=== PATIENT | male | born 1970 | race Caucasian/White ===

== ENCOUNTER 2024-02-12 09:36 | Observation (INO) | payer OTHER ==
--- NOTE | 2024-02-12 09:54 | ED ---
General Adult HPI - General Chief complaint: Alcohol Stated complaint: ETOH Time Seen by Provider: 02/12/24 09:41 Source: patient, EMS, RN notes reviewed Mode of arrival: EMS Limitations: no limitations - History of Present Illness Initial comments: Patient is a 53-year-old male present to the emergency department from [facility] for alcohol intoxication. Patient states he went there to try to get off alcohol however his level was too high. Patient mitts to drinking today. Patient states sometimes he can drink up to 2 of 1/5 of alcohol. Patient denies any physical complaints however does state that his heartbeat may be high - Related Data Home Medications Medication Instructions Recorded Confirmed Atorvastatin [Lipitor] 20 mg PO HS 02/12/24 02/12/24 Baclofen 10 mg PO BID PRN 02/12/24 02/12/24 Ergocalciferol [Vitamin D2 (1250 1,250 mcg PO SA 02/12/24 02/12/24 Mcg = 12133 Iu)] Folic Acid 1 mg PO DAILY 02/12/24 02/12/24 Mirtazapine [Remeron] 30 mg PO HS 02/12/24 02/12/24 Sildenafil Citrate 50 mg PO Q4H PRN MDD 100mg 02/12/24 02/12/24 busPIRone HCL 15 mg PO BID 02/12/24 02/12/24 fluvoxaMINE MALEATE [Luvox CR] 150 mg PO DAILY 02/12/24 02/12/24 metFORMIN HCL [Glucophage] 500 mg PO BID 02/12/24 02/12/24 Allergies Allergy/AdvReac Type Severity Reaction Status Date / Time No Known Allergies Allergy Verified 02/12/24 09:46 Review of Systems ROS Statement: Those systems with pertinent positive or pertinent negative responses have been documented in the HPI. ROS Other: All systems not noted in ROS Statement are negative. Constitutional: Denies: fever Eyes: Denies: eye pain ENT: Denies: ear pain Cardiovascular: Denies: chest pain Gastrointestinal: Denies: abdominal pain, vomiting Past Medical History Past Medical History: No Reported History History of Any Multi-Drug Resistant Organisms: None Reported Past Surgical History: No Surgical Hx Reported Past Alcohol Use History: Abuse Past Drug Use History: None Reported General Exam Limitations: no limitations General appearance: alert, in no apparent distress Head exam: Present: normocephalic Eye exam: Present: normal appearance, PERRL, EOMI, nystagmus Neck exam: Present: normal inspection Respiratory exam: Present: normal lung sounds bilaterally Cardiovascular Exam: Present: tachycardia, normal heart sounds GI/Abdominal exam: Present: soft. Absent: tenderness Extremities exam: Present: normal inspection Neurological exam: Present: alert Psychiatric exam: Present: normal affect, normal mood Skin exam: Present: normal color Course Vital Signs 02/12/24 09:40 Temperature 98.3 F Pulse Rate 124 H Respiratory 18 Rate Blood Pressure 164/82 O2 Sat by Pulse 94 L Oximetry Medical Decision Making - Medical Decision Making Was pt. sent in by a medical professional or institution (, PA, FIELD SUPERINTENDENT, urgent care, hospital, or senior care...) When possible be specific @ -Patient was sent from [facility] Did you speak to anyone other than the patient for history (EMS, parent, family, police, friend...)? What history was obtained from this source @ -No Did you review nursing and triage notes (agree or disagree)? Why? @ -I reviewed and agree with nursing and triage notes Were old charts reviewed (outside hosp., previous admission, EMS record, old EKG, old radiological studies, urgent care reports/EKG's, senior care records)? Report findings @ -No old charts were reviewed Differential Diagnosis (chest pain, altered mental status, abdominal pain women, abdominal pain men, vaginal bleeding, weakness, fever, dyspnea, syncope, headache, dizziness, GI bleed, back pain, seizure, CVA, palpatations, mental health, musculoskeletal)? @ -Differential Altered Mental Status: Hypoglycemia, DKA, hypercapnia, ETOH, overdose, CO poisoning, trauma, myxedema coma, HTN encephalopathy, infection, encephalitis, psychosis, intercranial hemorrhage, hepatic encephalopathy, meningitis, CVA, this is not meant to be an all-inclusive list EKG interpreted by me (3pts min.). @ -As above X-rays interpreted by me (1pt min.). @ -None done CT interpreted by me (1pt min.). @ -None done U/S interpreted by me (1pt. min.). @ -None done What testing was considered but not performed or refused? (CT, X-rays, U/S, labs)? Why? @ -None What meds were considered but not given or refused? Why? @ -None Did you discuss the management of the patient with other professionals (professionals i.e. , PA, FIELD SUPERINTENDENT, lab, RT, psych nurse, social media campaign manager, water regulator and valve repairer, teacher, tax revenue officer, nurse outreach case manager)? Give summary @ -Case was discussed with Dr. Barry who will admit covering Dr. leon Was smoking cessation discussed for >3mins.? @ -No Was critical care preformed (if so, how long)? @ -No Were there social determinants of health that impacted care today? How? (Homelessness, low income, unemployed, alcoholism, drug addiction, transportation, low edu. Level, literacy, decrease access to med. care, correction, rehab)? @ -No Was there de-escalation of care discussed even if they declined (Discuss DNR or withdrawal of care, Hospice)? DNR status @ -No What co-morbidities impacted this encounter? (DM, HTN, Smoking, COPD, CAD, Cancer, CVA, ARF, Chemo, Hep., AIDS, mental health diagnosis, sleep apnea, morbid obesity)? @ -None Was patient admitted / discharged? Hospital course, mention meds given and route, prescriptions, significant lab abnormalities, going to OR and other pertinent info. @ -Patient presents from rehab with alcohol level of almost 500. Patient will be admitted. Admission orders written. Undiagnosed new problem with uncertain prognosis? @ -No Drug Therapy requiring intensive monitoring for toxicity (Heparin, Nitro, Insulin, Cardizem)? @ -No Were any procedures done? @ -No Diagnosis/symptom? @ -Alcohol intoxication Acute, or Chronic, or Acute on Chronic? @ -Acute Uncomplicated (without systemic symptoms) or Complicated (systemic symptoms)? @ -Default Side effects of treatment? @ -No Exacerbation, Progression, or Severe Exacerbation? @ -No Poses a threat to life or bodily function? How? (Chest pain, USA, GA, pneumonia, PE, COPD, DKA, ARF, appy, cholecystitis, CVA, Diverticulitis, Homicidal, Suicidal, threat to staff... and all critical care pts) @ -No - Lab Data Result diagrams: 02/12/24 10:48 02/12/24 10:48 Lab Results 02/12/24 02/12/24 Range/Units 10:48 10:48 WBC 3.7 L (3.8-10.6) k/uL RBC 3.86 L (4.30-5.90) m/uL Hgb 11.7 L (13.0-17.5) gm/dL Hct 36.5 L (39.0-53.0) % MCV 94.7 (80.0-100.0) fL MCH 30.2 (25.0-35.0) pg MCHC 31.9 (31.0-37.0) g/dL RDW 14.2 (11.5-15.5) % Plt Count 107 L (150-450) k/uL MPV 8.4 Neutrophils % 62 % Lymphocytes % 26 % Monocytes % 6 % Eosinophils % 2 % Basophils % 1 % Neutrophils # 2.3 (1.3-7.7) k/uL Lymphocytes # 1.0 (1.0-4.8) k/uL Monocytes # 0.2 (0-1.0) k/uL Eosinophils # 0.1 (0-0.7) k/uL Basophils # 0.0 (0-0.2) k/uL Sodium 141 (137-145) mmol/L Potassium 3.9 (3.5-5.1) mmol/L Chloride 99 (98-107) mmol/L Carbon Dioxide 20 L (22-30) mmol/L Anion Gap 22 mmol/L BUN 17 (9-20) mg/dL Creatinine 0.73 (0.66-1.25) mg/dL Est GFR (CKD-EPI)AfAm >90 (>60 ml/min/1.73 sqM) Est GFR (CKD-EPI)NonAf >90 (>60 ml/min/1.73 sqM) Glucose 181 H (74-99) mg/dL Calcium 8.7 (8.4-10.2) mg/dL Magnesium 1.8 (1.6-2.3) mg/dL Total Bilirubin 0.8 (0.2-1.3) mg/dL AST 107 H (17-59) U/L ALT 72 H (4-49) U/L Alkaline Phosphatase 99 (38-126) U/L Total Protein 7.3 (6.3-8.2) g/dL Albumin 4.7 (3.5-5.0) g/dL Serum Alcohol 499 H* mg/dL Disposition Clinical Impression: Alcoholic intoxication Disposition: ADMITTED IP TO THIS HOSP Is patient prescribed a controlled substance at d/c from ED?: No Referrals: None,Stated [REFERRING] - 1-2 days Time of Disposition: 12:11
[2024-02-12] MEDS: SODIUM CHLORIDE 0.9% 1,000 ML IV STA (10:04)
[2024-02-12] MEDS: THIAMINE 100 MG/ML 2 ML VIAL IM STA (10:05)
[2024-02-12 11:21] LABS: Basophils % (A) 1 %; Eosinophils # (A) 0.1 k/uL (0-0.7); Eosinophils % (A) 2 %; HCT 36.5 % (39.0-53.0); HGB 11.7 gm/dL (13.0-17.5); Lymphocytes % (A) 26 %; MCH 30.2 pg (25.0-35.0); MCHC 31.9 g/dL (31.0-37.0); MCV 94.7 fL (80.0-100.0); Mean Platelet Volume 8.4; Monocytes # (A) 0.2 k/uL (0-1.0); Monocytes % (A) 6 %; Neutrophils # (A) 2.3 k/uL (1.3-7.7); Neutrophils % (A) 62 %; Platelet Count 107 k/uL (150-450); RBC 3.86 m/uL (4.30-5.90); RDW 14.2 % (11.5-15.5); WBC 3.7 k/uL (3.8-10.6)
[2024-02-12 11:30] LABS: ALT 72 U/L (4-49); AST 107 U/L (17-59); African American GFR (CKD) >90 (>60 ml/min/1.73 sqM); Albumin 4.7 g/dL (3.5-5.0); Alkaline Phosphatase 99 U/L (38-126); Anion Gap 22 mmol/L; Blood Urea Nitrogen 17 mg/dL (9-20); Calcium 8.7 mg/dL (8.4-10.2); Carbon Dioxide 20 mmol/L (22-30); Chloride 99 mmol/L (98-107); Glucose 181 mg/dL (74-99); Magnesium 1.8 mg/dL (1.6-2.3); Non-African American GFR(CKD) >90 (>60 ml/min/1.73 sqM); Potassium 3.9 mmol/L (3.5-5.1); Sodium 141 mmol/L (137-145); Total Bilirubin 0.8 mg/dL (0.2-1.3); Total Protein 7.3 g/dL (6.3-8.2)
[2024-02-12 11:48] LABS: Alcohol 499 mg/dL
[2024-02-12] MEDS ORDERED: BACLOFEN 10 MG TAB PO PRN (12:09)
[2024-02-12] MEDS ORDERED: NALOXONE 0.4 MG/ML 1 ML VIAL IV PRN (12:11)
[2024-02-12] MEDS ORDERED: LORazepam 0.5 MG TAB PO PRN (12:14)
[2024-02-12] MEDS ORDERED: LORazepam 1 MG TAB PO PRN (12:14)
[2024-02-12] MEDS: SODIUM CHLORIDE 0.9% 1,000 ML IV SCH (12:28)
--- NOTE | 2024-02-12 14:18 | P.HPIM ---
History of Present Illness H&P Date: 02/12/24 History of Presenting Illness: Patient is a 53-year-old male with a past medical history of daily alcohol abuse reporting drinking 2 fifths of liquor daily, hypertension, type II [id number] diabetes mellitus, and anxiety. He presented to the emergency department from [place] secondary to alcohol intoxication. Patient reports he is trying to stop drinking which is why he went to [place], but reports was still intoxicated so they sent him to the hospital for medical detox. Patient denies any complaints at this time with the exception of mild nausea and anxiety. He denies headache, lightheadedness, dizziness, chest pain, palpitations, shortness of breath, cough or congestion, or experiencing any numbness/tingling/weakness/swelling in his extremities. Underwent evaluation in the emergency department. Vital signs upon arrival show blood pressure 164/82, heart rate 124, respiratory rate 18, temp 98.3 F, and SpO2 of 94% on room air. Labs completed and reviewed. CBC showing pancytopenia with WBC count of 3.7, hemoglobin 11.7, and platelet count of 107. BMP showing hypocarbia with bicarb of 20 and elevated anion gap of 22. Blood glucose 181. Magnesium 1.8. Liver profile showing elevated AST of 107 and ALT of 72. Blood alcohol level was 499. Patient admitted under our services for medical detox. Review of systems: Pertinent positives and negatives as discussed in HPI, a complete review of systems was performed and all other systems are negative. Physical exam: Vital signs reviewed and stable. General: Nontoxic, no distress and appears stated age. Derm: Skin warm and dry, normal coloration for ethnicity. Head: Atraumatic, normocephalic and symmetric. Eyes: EOMs intact, no lid lag, and anicteric sclera Mouth: no lip lesions, mucus membranes moist Cardiovascular: regular rate and rhythm with normal S1S2, no murmur, positive posterior tibial pulses bilaterally, and cap refill < 2 seconds. Lungs: Respirations even, regular, and unlabored on room air. Lungs CTA bilaterally, no rhonchi, no rales, no wheezing, and no accessory muscle usage. Abdominal: soft, nontender to palpation, no guarding, no appreciable or ganomegaly Ext: ROM intact. No gross muscle atrophy, no edema, no contractures Neuro: Speech clear, face symmetrical and CN II-XII grossly intact with no noted focal neuro deficits Psych: Alert and oriented to person, place, time, and situation. Appropriate and pleasant affect. Assessment and Plan of Care: Alcohol intoxication in active alcoholic -Order placed for monitoring of CIWA scores and patient to be medicated with Ativan 0.5 mg every 4 hours as needed for CIWA score of 4-5, Ativan 1 mg every 4 hours for CIWA score of 6-7, Ativan 2 mg every 3 hours CIWA score of 8-9, and Ativan 2 mg every 2 hours forr CIWA score of 10 or greater. -Continuous IV hydration. -Thiamine 100 mg daily -Multivitamin daily -Folate 1 mg daily -Seizure, fall, aspiration, and elopement precautions in place. -Continued close monitoring of electrolytes and replace as needed. -Telemetry monitoring. Diabetes mellitus with hyperglycemia Hold metformin and patient placed on glycemic protocol with NovoLog sliding scale. Hyperlipidemia Continue daily medication regimen with atorvastatin 20 mg nightly. Anxiety Continue daily medication regimen with BuSpar 15 mg twice daily, Luvox 150 mg daily, and Remeron 30 mg nightly. Data and imaging reviewed: As stated above in HPI CODE STATUS: Full code DVT prophylaxis: Lovenox Anticipated discharge date: Pending clinical course Anticipated discharge place: Return to [facility] Patient was seen independently by Nurse Practitioner. This document was prepared using [employer] dictation software. Please allow for errors in equipment planner while rare they do occur. I reviewed the documentation as provided by the FREDA above, who is the original author of this note. I agree with the documented assessment and plan, with the following changes: none Past Medical History Past Medical History: No Reported History History of Any Multi-Drug Resistant Organisms: None Reported Past Surgical History: No Surgical Hx Reported Past Alcohol Use History: Abuse Past Drug Use History: None Reported Medications and Allergies Home Medications Medication Instructions Recorded Confirmed Type Atorvastatin [Lipitor] 20 mg PO HS 02/12/24 02/12/24 History Baclofen 10 mg PO BID PRN 02/12/24 02/12/24 History Ergocalciferol [Vitamin D2 (1250 1,250 mcg PO SA 02/12/24 02/12/24 History Mcg = 42261 Iu)] Folic Acid 1 mg PO DAILY 02/12/24 02/12/24 History Mirtazapine [Remeron] 30 mg PO HS 02/12/24 02/12/24 History Sildenafil Citrate 50 mg PO Q4H PRN MDD 100mg 02/12/24 02/12/24 History busPIRone HCL 15 mg PO BID 02/12/24 02/12/24 History fluvoxaMINE MALEATE [Luvox CR] 150 mg PO DAILY 02/12/24 02/12/24 History metFORMIN HCL [Glucophage] 500 mg PO BID 02/12/24 02/12/24 History Allergies Allergy/AdvReac Type Severity Reaction Status Date / Time No Known Allergies Allergy Verified 02/12/24 09:46 Physical Exam Vitals: Vital Signs Temp Pulse Resp BP Pulse Ox 02/12/24 14:15 98.1 F 105 H 18 122/76 98 02/12/24 09:40 98.3 F 124 H 18 164/82 94 L Intake and Output 02/11/24 02/12/24 02/12/24 22:59 06:59 14:59 Other: Weight 79.379 kg Results CBC & Chem 7: 02/12/24 10:48 02/12/24 10:48 Labs: Abnormal Lab Results - Last 24 Hours (Table) 02/12/24 02/12/24 Range/Units 10:48 10:48 WBC 3.7 L (3.8-10.6) k/uL RBC 3.86 L (4.30-5.90) m/uL Hgb 11.7 L (13.0-17.5) gm/dL Hct 36.5 L (39.0-53.0) % Plt Count 107 L (150-450) k/uL Carbon Dioxide 20 L (22-30) mmol/L Glucose 181 H (74-99) mg/dL AST 107 H (17-59) U/L ALT 72 H (4-49) U/L Serum Alcohol 499 H* mg/dL
[2024-02-12] MEDS ORDERED: DEXTROSE 50% SYRINGE 50 ML IVP PRN ×2 (14:30)
[2024-02-12] MEDS: LORazepam 1 MG TAB PO PRN ×2 (15:07→17:42)
[2024-02-12] MEDS ORDERED: metFORMIN 500 MG TAB PO SCH (17:30)
[2024-02-12] MEDS: PROCHLORPERAZINE INJ 10 MG/2 ML VIAL IVP PRN (17:36)
[2024-02-12 18:12] LABS: Glucose,Whole Blood 141 mg/dL (70-110)
[2024-02-12] MEDS: INSULIN ASPART (NovoLOG) 100 UNIT/ML VIAL SQ SCH (18:39)
[2024-02-12 22:16] LABS: Glucose,Whole Blood 149 mg/dL (70-110)
[2024-02-12] MEDS: MIRTAZAPINE 15 MG TAB PO SCH (22:20)
[2024-02-12] MEDS: FAMOTIDINE 20 MG TAB PO SCH (22:21)
[2024-02-12] MEDS: ATORVASTATIN 20 MG TAB PO SCH (22:21)
[2024-02-12] MEDS: busPIRone HCl 5 MG TAB PO SCH (22:21)
[2024-02-13 03:16] VITALS: TEMP 98.2
[2024-02-13 05:56] LABS: Glucose,Whole Blood 140 mg/dL (70-110)
[2024-02-13 07:35] VITALS: BP 147/61; PULSE 96; RESP 18
[2024-02-13] MEDS: THIAMINE 100 MG TAB PO SCH (08:27)
[2024-02-13] MEDS: ENOXAPARIN 40 MG/0.4 ML SYRINGE SQ SCH (08:27)
[2024-02-13] MEDS: MULTIVITAMINS, THERA 1 EACH TAB PO SCH (08:27)
[2024-02-13] MEDS: FOLIC ACID 1 MG TAB PO SCH (08:27)
[2024-02-13 11:57] LABS: Glucose,Whole Blood 215 mg/dL (70-110)
--- NOTE | 2024-02-13 12:18 | P.DS ---
Providers Date of admission: 02/12/24 12:11 Expected date of discharge: 02/13/24 Attending physician: Bebeto Mckenzie MD Primary care physician: Danny Bryant [place] Hospital Course: Discharge Diagnosis: Alcohol intoxication in active alcoholic. Patient clinically sober at this time. Current CIWA 2. Patient medically cleared for transfer to inpatient substance abuse treatment program.. [facility] was notified of patient's discharge and patient provided with taxi for transport back to [place]. Diabetes mellitus with hyperglycemia. Continue metformin 500 mg twice daily. Hyperlipidemia. Continue daily medication regimen with atorvastatin 20 mg nightly. Anxiety. Continue daily medication regimen with BuSpar 15 mg twice daily, Luvox 150 mg daily, and Remeron 30 mg nightly. Hospital Course: Patient is a 53-year-old male with a past medical history of daily alcohol abuse reporting drinking 2 fifths of liquor daily, hypertension, type II non-insulin- dependent diabetes mellitus, and anxiety. He presented to the emergency department from [place] secondary to alcohol intoxication. Patient reports he is trying to stop drinking which is why he went to [place], but reports was still intoxicated so they sent him to the hospital for medical detox. Patient denies any complaints at this time with the exception of mild nausea and anxiety. He denies headache, lightheadedness, dizziness, chest pain, palpitations, shortness of breath, cough or congestion, or experiencing any numbness/tingling/weakness/swelling in his extremities. Underwent evaluation in the emergency department. Vital signs upon arrival show blood pressure 164/82, heart rate 124, respiratory rate 18, temp 98.3 F, and SpO2 of 94% on room air. Labs completed and reviewed. CBC showing pancytopenia with WBC count of 3.7, hemoglobin 11.7, and platelet count of 107. BMP showing hypocarbia with bicarb of 20 and elevated anion gap of 22. Blood glucose 181. Magnesium 1.8. Liver profile showing elevated AST of 107 and ALT of 72. Blood alcohol level was 499. Patient admitted under our services for medical detox. Patient provided with aggressive IV fluid hydration and was placed on CIWA protocol with benzodiazepines. Patient clinically sober at this time. He appears to be doing well. Current CIWA 2. Patient medically stable and cleared for transfer to inpatient substance abuse treatment program.. [facility] was notified of patient's discharge and patient provided with taxi for transport back to [place]. Physical exam: Vital signs reviewed and stable. General: Nontoxic, no distress and appears stated age. Derm: Skin warm and dry, normal coloration for ethnicity. Head: Atraumatic, normocephalic and symmetric. Eyes: EOMs intact, no lid lag, and anicteric sclera Mouth: no lip lesions, mucus membranes moist Cardiovascular: regular rate and rhythm with normal S1S2, no murmur, positive posterior tibial pulses bilaterally, and cap refill < 2 seconds. Lungs: Respirations even, regular, and unlabored on room air. Lungs CTA bilaterally, no rhonchi, no rales, no wheezing, and no accessory muscle usage. Abdominal: soft, nontender to palpation, no guarding, no appreciable organomegaly Ext: ROM intact. No gross muscle atrophy, no edema, no contractures Neuro: Speech clear, face symmetrical and CN II-XII grossly intact with no noted focal neuro deficits Psych: Alert and oriented to person, place, time, and situation. Appropriate and pleasant affect. A total of 31 minutes of time were spent preparing this complex discharge summary. Pt was discharged on 02/13/2024 at 12:18 PM. Patient was seen independently by Nurse Practitioner. This document was prepared using [employer] dictation software. Please allow for errors in dry kiln burner while rare they do occur. I reviewed the documentation as provided by the FREDA above, who is the original author of this note. I agree with the documented assessment and plan, with the following changes: none Patient Condition at Discharge: Stable Plan - Discharge Summary New Discharge Prescriptions: Continue Mirtazapine [Remeron] 30 mg PO HS metFORMIN HCL [Glucophage] 500 mg PO BID fluvoxaMINE MALEATE [Luvox CR] 150 mg PO DAILY Folic Acid 1 mg PO DAILY Baclofen 10 mg PO BID PRN PRN Reason: Muscle Spasm Atorvastatin [Lipitor] 20 mg PO HS Sildenafil Citrate 50 mg PO Q4H PRN MDD 100mg PRN Reason: E.D. Ergocalciferol [Vitamin D2 (1250 Mcg = 50199 Iu)] 1,250 mcg PO SA busPIRone HCL 15 mg PO BID Discharge Medication List Atorvastatin [Lipitor] 20 mg PO HS 02/12/24 [History] Baclofen 10 mg PO BID PRN 02/12/24 [History] Ergocalciferol [Vitamin D2 (1250 Mcg = 87750 Iu)] 1,250 mcg PO SA 02/12/24 [History] Folic Acid 1 mg PO DAILY 02/12/24 [History] Mirtazapine [Remeron] 30 mg PO HS 02/12/24 [History] Sildenafil Citrate 50 mg PO Q4H PRN MDD 100mg 02/12/24 [History] busPIRone HCL 15 mg PO BID 02/12/24 [History] fluvoxaMINE MALEATE [Luvox CR] 150 mg PO DAILY 02/12/24 [History] metFORMIN HCL [Glucophage] 500 mg PO BID 02/12/24 [History] Follow up Appointment(s)/Referral(s): None,Stated [REFERRING] - 1-2 days Patient Instructions/Handouts: Medical Clearance for Substance Abuse Treatment (DC) Activity/Diet/Wound Care/Special Instructions: to [facility]. Discharge Disposition: OTHER INSTITUTION NOT DEFINED
[2024-02-17] MEDS ORDERED: ERGOCALCIFEROL 1,250 MCG (50,000 IU) CAPSULE PO SCH (09:00)
== END 2024-02-13 13:06 | disposition other institution (70) ==
LOC: EC 09:36 → 6NMEDSUR 12:11
PROVIDERS: ADMIT Student in an Organized Health Care Education/Training Program; ATTEND Student in an Organized Health Care Education/Training Program
DX: F10.229 Alcohol dependence with intoxication, unspecified (principal); E11.65 Type 2 diabetes mellitus with hyperglycemia; I10 Essential (primary) hypertension; F41.9 Anxiety disorder, unspecified; E78.5 Hyperlipidemia, unspecified; Y90.8 Blood alcohol level of 240 mg/100 ml or more; Z79.84 Long term (current) use of oral hypoglycemic drugs; Z79.899 Other long term (current) drug therapy
CPT/HCPCS: 96376; 96361 ×3; 96372 ×2; 96374; 99284; 36415; 80053; 83735; 85025; 80320; G0378 ×2; J0780 ×2; J3411; J1650